=== PATIENT | female | born 1975 ===

== ENCOUNTER → 2018-12-05 22:08 | Outpatient (ROUT) | payer OTHER, SELFPAY | PROVIDERS: Visit Provider Family Medicine | DX: R31.9 Hematuria, unspecified (principal) | CPT/HCPCS: 87077; 87086 ==

== ENCOUNTER → 2019-01-07 22:52 | Outpatient (ROUT) | payer OTHER, SELFPAY ==
[2019-01-08 00:22] LABS: Hematocrit 33.9 % (36-46); Hemoglobin 10.4 g/dL (12.0-16.0)
[2019-01-08 00:24] LABS: Ferritin 5.5 ng/mL (6.27-137)
== END ==
PROVIDERS: Visit Provider Family Medicine
DX: D64.9 Anemia, unspecified (principal)
CPT/HCPCS: 36415; 82728; 85014; 85018

== ENCOUNTER → 2019-01-10 21:14 | Outpatient (ROUT) | payer OTHER, SELFPAY ==
[2019-01-11] LABS: Folate 15.6 ng/mL (2.76-20.0); Vitamin B12 431 pg/mL (239-931)
== END ==
PROVIDERS: Visit Provider Family Medicine
DX: D64.9 Anemia, unspecified (principal)
CPT/HCPCS: 36415; 82607; 82746